=== PATIENT | female | born 2000 | race Caucasian/White ===

== ENCOUNTER 2021-02-24 14:03 | Outpatient (CLI) | payer MEDICAID, SELFPAY ==
[2021-02-24] VITALS (8 sets, daily range): BP systolic 106–131; BP diastolic 57–84; PULSE 87–117; RESP 17; BMI 35.2
--- NOTE | 2021-02-24 15:08 | US_ITS ---
WS: [id number] ULTRASOUND OB LIMITED TECHNIQUE: Limited ultrasound examination of the fetus. CLINICAL INFORMATION: unknown gestation COMPARISON: None. FINDINGS: Cervix is closed measuring 3.7 cm Single interuterine gestation. presentation is cephalic Placental location is posterior. Placenta grade: 0. heart rate 129 BPM. AMOS 16.4 cm Anatomy: BDP: 5.6 cm = 23w0d HC: 20.8 cm = 22w6d AC: 18.6 cm = 23w3d FEMUR LENGTH: 4.2 cm = 23w4d Estimated weight: 590 g, 52nd percentile EGA by ultrasound: 23w2d SIERRA by ultrasound: 06/21/2021 US/US OB limited [id number] IMPRESSION: 1. Cervix is closed measuring 3.7 CM. 2. presentation is cephalic with posterior placenta. 3. Normal amniotic fluid volume. 4. Gestational age 23 weeks 2 days with estimated date of delivery June 21, 2021
[2021-02-24 15:29] LABS: Bilirubin Urine Neg (Negative); Blood Urine Neg (Negative); Glucose Urine UA Norm (Normal); Ketones Urine Negative (Negative); Leukocyte Esterase Urine 2+ (Negative); Nitrate Urine Negative (Negative); Protein Urine Neg (Negative); Specific Gravity, Urine 1.015 (1.005-1.030); Urine Appearance Cloudy (CLEAR); Urine Color Yellow (Yellow); Urobilinogen Urine Norm (Negative); pH Urine 6.5 (5-7)
[2021-02-24 15:32] LABS: Amphetamines Screen Urine Negative (Negative); Barbiturates Screen Urine Negative (Negative); Benzodiazepines Screen Urine Negative (Negative); Cocaine Screen Urine Negative (Negative); Opiate Screen Urine Negative (Negative); PCP Screen Urine Negative (Negative); THC Screen Urine Negative (Negative)
[2021-02-24 15:35] LABS: Bacteria Urine 2+ /hpf; RBC Urine 0-4 /hpf (0-2); Squamous Epithelial Cell Urine 55-80 /hpf (0-5); WBC Urine 80-100 /hpf (0-5)
[2021-02-24 15:36] LABS: Add Urine Culture? No
--- NOTE | 2021-02-24 16:11 | PC.NURSE ---
this nurse called in a prescription of Keflex 500mg, PO, TID,for 10 days [facility]
== END 2021-02-24 16:27 | disposition home or self-care (01) ==
LOC: OPOB 14:12 → OBGYN 14:22
PROVIDERS: Visit Provider Family Medicine
DX: O26.899 Other specified pregnancy related conditions, unspecified trimester (principal); Z3A.00 Weeks of gestation of pregnancy not specified; R10.9 Unspecified abdominal pain; R42 Dizziness and giddiness
CPT/HCPCS: 76815; 80306; 81001; 87086; 99211